=== PATIENT | female | born 2000 | race American Indian/Alaskan Native ===

== ENCOUNTER 2018-06-25 22:30 | Emergency (ER) | payer OTHER ==
--- NOTE | 2018-06-26 05:42 | ED PDOC ---
Arrival/HPI - General Time Seen by Provider: 06/26/18 05:38 Historian: Patient - History of Present Illness Narrative History of Present Illness (Text): 06/26/18 05:40 17 year old female, with no significant past medical history, presents to the emergency department with left ankle pain and swelling, status post injury. Patient states she was chasing her daughter around when she hurt her left ankle. Patient denies falling, stating that she just twisted it. Patient denies any fever, chills, headache, chest pain, or any other complaint. Time/Duration: Prior to Arrival Quality: Aching Activities at Onset: Significant Context: Home Past Medical History - Provider Review Nursing Documentation Reviewed: Yes Family/Social History - Physician Review Nursing Documentation Reviewed: Yes Family/Social History: No Known Family HX Allergies/Home Meds Allergies/Adverse Reactions: Allergies No Known Food Allergies Allergy (Intermediate, Verified 06/26/18 12:49) NAUSEA ALLERGY TO DANISH HOT SAUCE Review of Systems - Physician Review All systems were reviewed & negative as marked: Yes - Review of Systems Constitutional: absent: Fevers, Night Sweats Cardiovascular: absent: Chest Pain Musculoskeletal: Joint Swelling (left ankle) Neurological: absent: Headache Physical Exam - Systems Exam Head: Present: Atraumatic, Normocephalic Pupils: Present: PERRL Extroacular Muscles: Present: EOMI Conjunctiva: Present: Normal Mouth: Present: Moist Mucous Membranes Neck: Present: Normal Range of Motion Respiratory/Chest: Present: Clear to Auscultation, Good Air Exchange. No: Respiratory Distress, Accessory Muscle Use Cardiovascular: Present: Regular Rate and Rhythm, Normal S1, S2. No: Murmurs Abdomen: No: Tenderness, Distention, Peritoneal Signs Back: Present: Normal Inspection Upper Extremity: Present: Normal Inspection. No: Cyanosis, Edema Lower Extremity: Present: Tenderness, Swelling (left ankle), Neurovascularly Intact, Capillary Refill < 2 s Neurological: Present: GCS=15, CN II-XII Intact, Speech Normal Skin: Present: Warm, Dry, Normal Color. No: Rashes Psychiatric: Present: Alert, Oriented x 3, Normal Insight, Normal Concentration Medical Decision Making ED Course and Treatment: Impression 17F w/ L ankle pain s/p mechanical fall Differential Diagnoses Include But Are Not Limited To: --Bimolar ankle fracture --Ankle sprain --Ankle contusion Plan --Ankle XR --Toradol --Reassess & disposition Progress Notes XR ankle shows nom evidence of unstable ankle mortise. Patient updated on results and advised to continue elevating the ankle, applying ice and taking Motrin as neccesary. JENNIFER bandage applied to ankle. Orthopedic follow up provided as well as scripts given. She is stable for discharge. - Scribe Statement The provider has reviewed the documentation as recorded by the Scribe Chuck Singh Provider Scribe Attestation: All medical record entries made by the Scribe were at my direction and personally dictated by me. I have reviewed the chart and agree that the record accurately reflects my personal performance of the history, physical exam, medical decision making, and the department course for this patient. I have also personally directed, reviewed, and agree with the discharge instructions and disposition. Disposition/Present on Arrival - Present on Arrival Any Indicators Present on Arrival: No History of DVT/PE: No History of Uncontrolled Diabetes: No Urinary Catheter: No History of Decub. Ulcer: No - Disposition Have Diagnosis and Disposition been Completed?: Yes Diagnosis: Ankle contusion Disposition: HOME/ ROUTINE Disposition Time: 05:30 Patient Plan: Discharge Condition: STABLE Discharge Instructions (ExitCare): Contusion (DC) Print Language: MALAWIAN Additional Instructions: All medical record entries made by the Scribe were at my direction and personally dictated by me. I have reviewed the chart and agree that the record accurately reflects my personal performance of the history, physical exam, medical decision making, and the department course for this patient. I have also personally directed, reviewed, and agree with the discharge instructions and disposition. Referrals: Rahul Aceves DO [Staff Provider] - Follow up with primary
--- NOTE | 2018-06-26 09:07 | RAD ---
Date of service: 06/26/2018 PROCEDURE: Left Ankle Radiographs. HISTORY: Lateral ankle pain COMPARISON: None available. FINDINGS: BONES: Bone alignment and mineralization are normal. There is no acute displaced fracture or bone destruction. JOINTS: Normal. Ankle mortise maintained. Talar dome intact SOFT TISSUES: Normal. OTHER FINDINGS: None. IMPRESSION: No acute fracture or dislocation.
== END 2018-06-26 10:32 | disposition home or self-care (01) ==
LOC: ED 22:30
DX: S90.02XA Contusion of left ankle, initial encounter (principal); X58.XXXA Exposure to other specified factors, initial encounter